=== PATIENT | female | born 1995 | race Caucasian/White ===

== ENCOUNTER 2018-06-26 08:57 | Outpatient (CLI) | payer OTHER ==
--- NOTE | 2018-06-26 12:04 | MRI ---
LEFT KNEE MRI WITHOUT IV CONTRAST: History: 23-year-old female with history of left knee pain and swelling for one month. Patient is in gymnastic s. Technique: Multiplanar, multisequence MRI examination of the left knee was performed. FINDINGS: No abnormal joint effusion. There is abnormal signal associated with the medial meniscus including ob lique component which appears to extend to the undersurface and also to the capsular meniscal junctio n region of the posterior horn posterior body, certainly worrisome for a tear. The lateral meniscus i s unremarkable. The anterior and posterior cruciate ligaments, collateral ligament complexes, and lee driceps and patellar tendons are intact. No acute osteochondral defect. No significant abnormal marro w signal. IMPRESSION: Abnormal signal involving the medial meniscus posterior horn posterior body junction region with an o blique component extending towards the undersurface and to the capsular meniscal junction region, katerine dence for a tear of the medial meniscus. No evidence for other significant internal derangement. POS: [facility]
== END 2018-06-26 08:58 | disposition home or self-care (01) ==
LOC: SCSMRI 08:57
PROVIDERS: ATTEND Orthopaedic Surgery
DX: M25.562 Pain in left knee (principal); S83.242A Other tear of medial meniscus, current injury, left knee, initial encounter

== ENCOUNTER 2018-07-03 13:25 | Outpatient (CLI) | payer OTHER ==
[2018-07-03 13:59] LABS: BHCG - Serum Negative (NEGATIVE); Pregs Control Background? CLEAR/WHITE (CLR/WHITE); Pregs Control Bar Appear? YES (CONTROL BAR)
== END 2018-07-03 13:26 | disposition home or self-care (01) ==
LOC: LABBT 13:25
PROVIDERS: ATTEND Orthopaedic Surgery
DX: Z01.812 Encounter for preprocedural laboratory examination (principal); S83.242A Other tear of medial meniscus, current injury, left knee, initial encounter
CPT/HCPCS: 84703

== ENCOUNTER 2018-07-07 08:25 | Day surgery (SDC) | payer OTHER ==
[2018-07-03 13:52] VITALS: BMI 29.2
[2018-07-07] MEDS ORDERED: CEFAZOLIN 2 GM/50 ML BAG ONE (09:11)
[2018-07-07] MEDS ORDERED: PROPOFOL 20 ML ONE (10:11)
[2018-07-07] MEDS ORDERED: Fentanyl 100 MCG/2 ML VIAL ONE (11:39)
[2018-07-07] MEDS ORDERED: Bupivacaine HCl 0.5%/Epinephrine 1:200,000/PF 30 ml Vial ONE (12:06)
[2018-07-07] MEDS ORDERED: Lidocaine 2% w/Epinephrine 1:200K 20 ML VIAL ONE (12:06)
--- NOTE | 2018-07-07 13:05 | OP ---
PREOPERATIVE DIAGNOSIS: Left medial meniscus tear. POSTOPERATIVE DIAGNOSIS: Left medial meniscus tear. SURGEON: Armin Britt M.D. ANESTHESIA: General. BLOOD LOSS: Minimal. DRAINS: None. COMPLICATIONS: None. PROCEDURE IN DETAIL: After informed consent was obtained in the preoperative holding area, the patie nt was taken to the operative room where general anesthesia was induced. Left leg was prepped and dr aped in the usual sterile fashion. Scope was placed in the lateral portal and probe was placed in la teral medial portal. There were no arthritis changes, intact ACL, intact lateral compartment. Media l compartment had a complex medial meniscus tear. This was debrided with basket forceps and smoothed using a 4-0 full radius resector. The knee was then irrigated. Care was taken to make sure all loo se cartilaginous bodies were irrigated free from the joint. Sterile dressings applied. There were n o complications.
[2018-07-07] MEDS ORDERED: Metoclopramide HCl 10 MG/2 ML VIAL ONE (13:17)
[2018-07-07] MEDS ORDERED: PROPOFOL 200 MG/20 ML VIAL ONE (13:17)
[2018-07-07] MEDS ORDERED: ePHEDrine/0.9% NaCl/PF SYRINGE 50 mg/10 ml ONE (13:17)
[2018-07-07] MEDS ORDERED: Dexamethasone 20 MG/5 ML VIAL ONE (13:17)
[2018-07-07] MEDS ORDERED: Lidocaine 1% PF 5 ML VIAL ONE (13:17)
[2018-07-07] MEDS ORDERED: Ketorolac Tromethamine 30 MG/ML VIAL ONE (13:17)
[2018-07-07] MEDS ORDERED: Ondansetron PF 4 MG/2 ML Vial ONE (13:17)
== END 2018-07-07 14:15 | disposition home or self-care (01) ==
LOC: SDC 08:25
PROVIDERS: ATTEND Orthopaedic Surgery
PROC: 0SBD4ZZ Excision of Left Knee Joint, Percutaneous Endoscopic Approach (ICD-10-PCS; principal; 2018-07-07)
DX: S83.232A Complex tear of medial meniscus, current injury, left knee, initial encounter (principal)
CPT/HCPCS: G8978-GP-CL; G8979-GP-CL; G8980-GP-CL; J0131; J0670; J1100; J1885; J2001; J2405; J2704; J2765; J3010

== ENCOUNTER 2018-11-03 14:14 | Outpatient (CLI) | payer OTHER ==
--- NOTE | 2018-11-03 15:52 | MRI ---
LEFT KNEE MRI WITHOUT IV CONTRAST: 11/03/18 HISTORY: Tear of lateral meniscus left knee following injury three weeks ago. Left knee pain. Multiplanar and multisequence MRI examination of the left knee is performed. Comparison is made to a prior 06/26/18 study. FINDINGS: There is abnormal oblique fluid density signal in the posterior horn, posterior body of the medial me niscus extending essentially completely through the meniscus with small focus of blunting of the ante rior body of the meniscus. This has the appearance of a new flap tear. The lateral meniscus appears u nremarkable. Anterior and posterior cruciate ligaments, collateral ligament complexes, and quadriceps and patellar tendons appear intact. No significant abnormal joint effusion. No osteochondral defect or significant abnormal marrow signal. IMPRESSION: Oblique full thickness tear of the medial meniscus at the posterior horn and posterior body region, e vidence for a retear. No evidence for lateral meniscal tear. POS: [facility]
== END 2018-11-03 14:15 | disposition home or self-care (01) ==
LOC: SCSMRI 14:14
PROVIDERS: ATTEND Orthopaedic Surgery
DX: S83.282A Other tear of lateral meniscus, current injury, left knee, initial encounter (principal); S83.242A Other tear of medial meniscus, current injury, left knee, initial encounter

== ENCOUNTER 2018-11-16 06:47 | Day surgery (SDC) | payer OTHER ==
[2018-11-13 16:19] VITALS: BMI 30.2
[2018-11-16] MEDS ORDERED: Fentanyl 100 MCG/2 ML VIAL ONE (07:47)
[2018-11-16] MEDS ORDERED: Midazolam HCl 2 mg/2 ml Vial ONE (07:47)
[2018-11-16] MEDS ORDERED: Meperidine HCl/PF 25 MG/ML VIAL ONE (09:08)
--- NOTE | 2018-11-16 13:43 | OP ---
DATE OF PROCEDURE: 11/16/2018 PREOPERATIVE DIAGNOSIS: Medial meniscus tear, left knee. POSTOPERATIVE DIAGNOSIS: Medial meniscus tear, left knee. PROCEDURE PERFORMED: Arthroscopic partial medial meniscectomy. ANESTHESIA: General. ESTIMATED BLOOD LOSS: Minimal. SPECIMENS: None. DRAINS: None. COMPLICATIONS: None. DESCRIPTION OF PROCEDURE: The patient was taken to the operating room, where general anesthesia induced. Left leg was prepped and draped in usual sterile fashion. The patient was taken to the operating room, where general anesthesia induced. There was no arthritis, no chondral damage. The lateral compartment was intact. There was a complex tear involving the remainder of the medial meniscus, so removed most of the remainder of the medial meniscus using basket forceps, smoothened using a 4-0 full-radius resector. The knee was then irrigated and sterile dressings were applied. Job ID: [id number]
== END 2018-11-16 10:37 | disposition home or self-care (01) ==
LOC: SDC 06:47
PROVIDERS: ATTEND Orthopaedic Surgery
PROC: 0SBD4ZZ Excision of Left Knee Joint, Percutaneous Endoscopic Approach (ICD-10-PCS; principal; 2018-11-16)
DX: S83.232A Complex tear of medial meniscus, current injury, left knee, initial encounter (principal); J45.909 Unspecified asthma, uncomplicated; Z98.890 Other specified postprocedural states; Y93.43 Activity, gymnastics
CPT/HCPCS: J2175; J2250; J3010